=== PATIENT | female | born 1985 | race Caucasian/White ===

== ENCOUNTER → 2016-09-19 | Outpatient (CLI) | payer OTHER ==
[~2016-09-19] MED LIST: DICY10CA12; FLUO20CA35 PO; PRLSR20 PO
== END | disposition home or self-care (01) ==
LOC: C.LABSPEC 12:33
PROVIDERS: ATTEND Nurse Practitioner
DX: R39.15 Urgency of urination (principal); R35.0 Frequency of micturition

== ENCOUNTER → 2016-11-20 | Outpatient (CLI) | payer OTHER ==
[2016-11-20 09:54] LABS: CHOLESTEROL/HDL RATIO 2.2
== END | disposition home or self-care (01) ==
LOC: C.LAB 07:31
PROVIDERS: ATTEND Nurse Practitioner
DX: Z00.00 Encounter for general adult medical examination without abnormal findings (principal)

== ENCOUNTER 2018-10-01 08:33 | Inpatient (IN) ==
--- NOTE | 2018-09-03 15:08 | PAT Medication Instructions ---
Medication Instructions Date of Service September 03, 2018 Home Medications biotin 1,000 mcg PO QPM bupropion HCl [Wellbutrin SR] 100 mg PO QPM montelukast [Singulair] 10 mg PO QPM omeprazole 20 mg PO QPM STOP taking 2 weeks before surgery (or as soon as possible if surgery is within 2 weeks) biotin 1,000 mcg PO QPM Take evening before surgery bupropion HCl [Wellbutrin SR] 100 mg PO QPM montelukast [Singulair] 10 mg PO QPM omeprazole 20 mg PO QPM Other Notes If you have any questions please call us at [phone] or [phone] or [phone] or [phone]
--- NOTE | 2018-09-04 09:51 | Anesthesiology Consultation ---
Date of Service September 04, 2018 Assessment & Plan (1) Encounter for pre-operative examination: - Check test AM DOS Chart Review Chart Review: Acceptable Risk for Surgery and Patient seen in Pre Admission Test ing Teaching & Discussion Pre-Anesthesia Teaching/Discussion Notes: Instructed NPO after midnight before surgery,except medications with 15 cc of water. Medication instructions provided according to the PAT guidelines. History Surgery Operation Date: 10/01/18 07:15 Proposed Procedures p Left Total Hip Arthroplasty - Alex Anaya MD Height/Weight Height: 5 ft 5 in Weight: 83.3 kg Allergies Allergy/AdvReac Type Severity Reaction Status Date / Time No Known Allergies Allergy Verified 09/03/18 07:49 Medications Home Medications Medication Instructions Recorded Confirmed Last Taken biotin 1,000 mcg PO QPM 09/03/18 09/03/18 Unknown bupropion HCl [Wellbutrin SR] 100 mg PO QPM 09/03/18 09/03/18 Unknown montelukast [Singulair] 10 mg PO QPM 09/03/18 09/03/18 Unknown omeprazole 20 mg PO QPM 09/03/18 09/03/18 Unknown Past Medical History Medical History Anemia IN SETTING OF HEAVY MENSES (PCP MONITORING) Asthma CHILDHOOD; NO RECENT ISSUES Depression GERD (gastroesophageal reflux disease) CONTROLLED Exercise / Class Metabolic Activity II 4-5 Yardwork/Stairs/Walk up hill Past Family History Family History Grandmother (Maternal) Family hx of colon cancer Grandfather (Paternal) Family history of diabetes mellitus Past Surgical History Surgical History H/O uvulectomy History of cholecystectomy History of esophagogastroduodenoscopy (EGD) History of tonsillectomy Past Anesthesia History No Hx of Anesthesia Complications and No Family Hx of Anesthesia Complications History of PONV No Hx of PONV and Hx of Motion Sickness Social History Smoking Status: Former smoker tobacco type: cigarettes Do You Dip or Chew Tobacco: No Smoking End Date: QUIT 2 YEARS AGO Hx Alcohol Use: Yes Alcohol type: beer alcohol intake frequency: other Alcohol Intake Frequency Comment: SOCIALLY Hx Substance Use: No substance use type: does not use Review of Systems Reflux controlled. Patient denies chest pain, shortness of breath, dyspnea on exertion, cough, wheezing, palpitations. Physical Exam Vital Signs VITALS BP 119/84 P 91 TEMP 97.7 SP02 99%RA RESP 18 PHYSICAL Full neck and c-spine range of motion. Full TMJ range of motion. TMD 2.5 finger breaths Mallampati Score 3 Dentition: intact Lungs: clear throughout to auscultation Cardiac: regular rate and rhythm, no murmurs noted Spine: normal Carotid arteries: negative bruit Extremities: no edema Testing Electrocardiogram Date: 09/04/18 Findings: + NSR @ (85) Chest X-Ray Date: 09/04/18 Findings: + NAD Laboratory Results 09/04/18 10:16 09/04/18 10:16 PT 10.3 Seconds (9.0-12.0) 09/04/18 10:16 INR 1.0 (0.9-1.1) 09/04/18 10:16 APTT 26.4 Seconds (21.0-31.0) 09/04/18 10:16 Blood Type A Positive 09/04/18 10:16 Antibody Screen NEGATIVE 09/04/18 10:16
--- NOTE | 2018-09-04 10:43 | XRay Report ---
XR chest Pre-admission PA/Lat CLINICAL HISTORY: 33 years-old Female presenting with preoperative assessment. TECHNIQUE: PA and lateral views of the chest were obtained. COMPARISON: 05/12/2009. FINDINGS: Cardiomediastinal silhouette normal. Lungs and pleural spaces clear. Osseous structures normal. Upper abdomen normal. IMPRESSION: 1. No acute cardiopulmonary disease. Electronically signed by: Cam Hill M.D. 09/04/2018 10:42 AM
[2018-09-04 12:26] LABS: Mean Corpuscular Hgb Conc 32.6 g/dL (32-36); Mean Platelet Volume 9.4 fL (7.4-10.4); Platelet Count 380 K/uL (130-400)
[2018-09-04 12:34] LABS: BUN Creatinine Ratio 17.1 (10-20); Blood Urea Nitrogen 13 mg/dl (7-18); C Reactive Protein < 0.29 mg/dl (0-0.29); Calcium 8.5 mg/dl (8.5-10.1); Carbon Dioxide 27 mmol/L (21-32); Chloride 106 mmol/L (98-107); Creatinine Clr Calc Pharmacy 110.1 ml/min; Est GFR (African American) 117.8; Est GFR (Non-African American) 101.6; Glucose 98 mg/dl (70-99); Potassium 3.4 mmol/L (3.5-5.1); Sodium 137 mmol/L (136-145)
[2018-09-04 12:43] LABS: Partial Thromboplastin Time 26.4 Seconds (21.0-31.0); Prothrombin Time 10.3 Seconds (9.0-12.0)
[2018-09-04 12:51] LABS: Basophils # (auto) 0.04 K/uL (0-0.2); Basophils % (auto) 0.6 %; Eosinophils # (auto) 0.18 K/uL (0-0.5); Eosinophils % (auto) 2.7 %; Hematocrit (blood only) 32.8 % (37-47); Hemoglobin 10.7 g/dL (12.0-16.0); Immature Granulocytes # (auto) 0.01 K/uL (0.00-0.02); Immature Granulocytes % (auto) 0.2 %; Lymphocytes # (auto) 1.68 K/uL (1.2-3.4); Lymphocytes % (auto) 25.5 %; Mean Corpuscular Volume 81.2 fL (80-100); Monocytes # (auto) 0.67 K/uL (0.11-0.59); Monocytes % (auto) 10.2 %; Neutrophils # (auto) 4.01 K/uL (1.4-6.5); Neutrophils % (auto) 60.8 %; RDW Coefficient of Variation 15.1 % (11.5-14.5); RDW Standard Deviation 44.7 fL (36.4-46.3); Red Blood Count 4.04 M/uL (4.2-5.4); White Blood Count 6.59 K/uL (4.8-10.8)
--- NOTE | 2018-09-24 16:20 | History and Physical Report ---
DATE OF ADMISSION: 10/01/2018 CHIEF COMPLAINT: Left hip pain. HISTORY OF PRESENT ILLNESS: A 33-year-old female who presents for surgical treatment of her left hip. She has a several year history of increasing left hip pain and discomfort that gradually just gotten worse over the past year. She has initially more occasionally more buttock pain, but it has been more groin pain, thigh pain and that are the points where it hurts her all the time. She has limited walking tolerance. She cannot do anything active due to pain with any prolonged weightbearing. No numbness or radicular type symptoms. She has difficulty putting her shoes and socks on. She has difficulty going up and down steps. At the end of her shift, she has trouble standing. She has taken anti-inflammatories with minimal relief. She would like to have her left hip fixed. 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 There was no suspicion for cancer or tumor. PAST MEDICAL HISTORY: Significant for gastroesophageal reflux disease. PREVIOUS SURGERIES: Include: 1. Tonsillectomy. 2. Laparoscopic cholecystectomy. ALLERGIES: SEASONAL. CURRENT MEDICINES: Include: 1. Singulair 10 mg. 2. Wellbutrin 100 mg. 3. Prilosec 20 mg. 4. Biotin with keratin. SOCIAL HISTORY: A 34-year-old female. 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 She is . Two children. Rare alcohol intake. Does not smoke. FAMILY HISTORY: Significant for heart disease, colon cancer, breast cancer. REVIEW OF SYSTEMS: Negative for diabetes, neurologic problems, vascular problems, bleeding disorders. No chest pain or shortness of breath. No history of DVT or PE. No known bleeding problems. PHYSICAL EXAMINATION: GENERAL: Reveals a pleasant, but middle-aged female. Looks to be in excellent health. HEENT: Benign. NECK: Supple. No lymphadenopathy. LUNGS: Clear to auscultation. HEART: Regular rate and rhythm. ABDOMEN: Soft, nontender, nondistended. EXTREMITIES: Grossly neurovascularly intact except as follows. Examination of left hip reveals the patient walks with a slight bit of a limp. She is little short on the left side, maybe 0.5 cm compared to the right. She has a very stiff hip with internal rotation to neutral at best. External rotation at 20 degrees. Negative straight leg raise. She is neurologically intact. No significant warmth to her leg. X-RAYS: X-ray of left hip reviewed. It shows advanced left hip DJD. She has got fairly large cyst in the femoral head as well as the femoral neck area. There is collapse of the femoral head in the weightbearing area. I reviewed her MRI from the hospital. It does show significant collapse of the femoral head with edema and cystic changes. Otherwise, no obvious clear bony pathology. The radiologist thought this was consistent with pigmented villonodular synovitis versus gout. We did talk to him on the phone and there was no significant suspicion for cancer. PLAN: We talked about treatment options and she would like to have her left hip replaced, which I think is the only surgical option. We will obviously send this tissue off for analysis. Based on the imaging, it looks almost certainly benign. If it is PVNS, there certainly a chance the synovium could recur and we will do the best we can to excise all synovium. The risks and benefits of left total hip replacement were explained to the patient including but not limited to DVT, PE, , infection, neurological injury, vascular injury, bleeding problem, pain, limited range of motion, stiffness, failure to relieve her symptoms, dislocation, need for revision surgery in the future. The patient understands and desires to proceed. Informed consent was obtained. I did tell her as an outside chance, there could be cancer in this, although based on the MRI, plain films, this looks almost certainly benign. There is always a chance, at least we do not have to send it elsewhere for additional treatment. She is aware of this. As far as discharge plans, she is planning to be discharged to home with the [facility].
[~2018-10-01 08:33] MED LIST changes: +ACETAMINOPHEN 500 MG TAB PO SCH; +BUPIVACAINE 0.5 % 5 MG/1 ML PF 10ML VIAL ONE; +CEFAZOLIN 2000MG 2,000 MG/15 ML SYR IV SCH; -DICY10CA12; +FAMOTIDINE 20 MG TAB PO SCH; -FLUO20CA35 PO; +GABAPENTIN 300 MG x 3 PO SCH; +LR 500ML BOLUS, THEN 15ML/HR IV SCH; +LR 60ML/HR IV SCH; +METOCLOPRAMIDE HCL 10 MG TABLET PO SCH; -PRLSR20 PO; +SCOPOLAMINE 1.5 MG TDSY TD SCH; +TRANEXAMIC ACID 1,000 MG **IV Pre-op IV SCH
--- NOTE | 2018-10-01 08:46 | History & Physical Bridge Note ---
Date of Service October 01, 2018 History & Physical Bridge Note I have examined the patient, reviewed the History & Physical and in the interval since the performance of the History & Physical I have noted the following changes of clinical significance: no changes noted
[2018-10-01] MEDS ORDERED: fentaNYL citrate 100 MCG/2 ML VIAL ONE (09:51)
[2018-10-01] MEDS ORDERED: MIDAZOLAM HCL 1 MG/ML 2ML VIAL ONE ×2 (09:51)
[2018-10-01] MEDS ORDERED: MoRPHine SULFATE PF 1 MG/ML 10 ML AMP/VIAL ONE (09:55)
[2018-10-01] MEDS ORDERED: BUPIVACAINE/EPINEPHRINE 0.5% MPF 1:200,000 30 ML VIAL ONE (10:24)
[2018-10-01] MEDS ORDERED: BACITRACIN INJ 50,000 UNIT VIAL ONE (10:24)
[2018-10-01] MEDS ORDERED: PROPOFOL IV EMULSION 10 MG/ML 20 ML VIAL IV ONE ×3 (10:29→12:26)
[2018-10-01] MEDS ORDERED: LIDOCAINE HCL 2% 2 ML VIAL/AMP(20MG/ML) INFIL ONE (10:29)
[2018-10-01] MEDS ORDERED: DiphenhydrAMINE HCL 50 MG/ML VIAL IV PRN (11:00)
[2018-10-01] MEDS ORDERED: SODIUM CHLORIDE 0.9% 1000ML 1,000 ML IV SCH ×2 (11:00→14:01)
[2018-10-01] MEDS ORDERED: LACTATED RINGER'S 500 ML IV PRN (11:00)
[2018-10-01] MEDS ORDERED: PROMETHAZINE HCL 12.5 MG in SODIUM CHLORIDE 0.9% 50 ML IV PRN (11:00)
[2018-10-01] MEDS ORDERED: NALBUPHINE HCL INJ 10 MG/ML AMP IV PRN (11:00)
[2018-10-01] MEDS ORDERED: MEPERIDINE HCL 25 MG/ML CARP IV PRN (11:00)
[2018-10-01] MEDS ORDERED: NALOXONE HCL 0.4 MG/1 ML VIAL/CARP IV PRN ×2 (11:00→14:01)
[2018-10-01] MEDS ORDERED: NO NARCOTICS OR SEDATIVES SCH (11:00)
[2018-10-01] MEDS ORDERED: KETOROLAC 30 MG/ML VIAL IV PRN (11:00)
[2018-10-01] MEDS ORDERED: DC INTRASPINAL MORPHINE SCH (11:00)
[2018-10-01] MEDS ORDERED: NALOXONE HCL 0.08 MG in SYRINGE 1.8 ML IV PRN (11:00)
[2018-10-01] MEDS ORDERED: MoRPHine SULFATE PF 1 MG/ML 10 ML AMP/VIAL INT SPINAL ONE (11:00)
[2018-10-01] MEDS ORDERED: ONDANSETRON INJ 2 MG/ML 2 ML VIAL IV PRN (11:00)
[2018-10-01] MEDS ORDERED: ePHEDrine sulfate 50 MG/ML AMP IV PRN (11:00)
[2018-10-01] MEDS ORDERED: NALOXONE HCL 1 MG in SODIUM CHLORIDE 0.9% 1000ML 1,000 ML IV PRN (11:00)
[2018-10-01] MEDS ORDERED: ONDANSETRON INJ 2 MG/ML 2 ML VIAL ONE (12:20)
--- NOTE | 2018-10-01 12:40 | Post Operative Brief Note ---
Immediate Post Op Note v1 Date of Surgery October 01, 2018 Pre & Post Diagnosis Operation Date: 10/01/18 10:55 Pre-Op Diagnosis: Left Hip Advanced Degenerative Joint Disease Post-Op Diagnosis: Left Hip Advanced Degenerative Joint Disease Procedure Operation Date: 10/01/18 10:55 Actual Procedures p Left Total Hip Arthroplasty--Uncemented(Left) - Alex Anaya MD Surgeon Alex Anaya MD Seasonal Recruiter Carole, PAC Estimated Blood Loss 200 Findings Consistent with Post-Op Diagnosis Fluids 1400 cc Specimens Left Femoral Head Drains Clayton Catheter (A 16 Bel[place]ian clayton catheter was inserted by Lucila Lantigua RN, without difficulty, clear yellow urine obtained, output to be monitored by Leigha rodriguez.) Anesthesia Type Spinal MAC Complications none Disposition Accompanied Patient To Recovery: Yes Disposition: Recovery Room
--- NOTE | 2018-10-01 13:11 | Anesthesiology Progress Note ---
Date of Service October 01, 2018 Anesthesia Post Procedure Vital Signs Vital Signs: Temp Pulse Resp BP Pulse Ox 10/01/18 13:00 73 16 111/63 100 10/01/18 12:50 72 16 117/61 100 10/01/18 12:44 36.2 C L 72 18 115/60 100 10/01/18 09:00 37 C 93 H 16 134/78 98 Pain Intensity Left Hip: Pain Intensity: 4 Transfer of Care Handoff Completed per policy Notes Mental Status: alert / awake / arousable Patient Amnestic to Procedure: Yes Nausea / Vomiting: adequately controlled Pain: adequately controlled Airway Patency, RR, SpO2: stable & adequate BP & HR: stable & adequate Hydration State: stable & adequate Neuraxial Anesthesia: was administered and sensory block is resolving Anesthetic Complications: no major complications apparent
--- NOTE | 2018-10-01 13:30 | XRay Report ---
AP PELVIS, CROSSTABLE LATERAL LEFT HIP History: Left total hip arthroplasty. Degenerative arthritis. Postop. FINDINGS: The patient is status post a left total hip arthroplasty. The hardware is intact. No fractu re or dislocation. Skin raina are in place. IMPRESSION: Left total hip arthroplasty. No evidence for hardware complication. Electronically signed by: Mendoza Baeza M.D. 10/01/2018 1:29 PM
[2018-10-01] MEDS ORDERED: BISACODYL 10 MG SUPP PR PRN (14:01)
[2018-10-01] MEDS ORDERED: OXYCODONE HCL IR 5 MG TAB (IMMEDIATE RELEASE) PO PRN (14:01)
[2018-10-01] MEDS ORDERED: METOCLOPRAMIDE HCL INJ 5 MG/ML 2 ML VIAL IV PRN (14:01)
[2018-10-01] MEDS ORDERED: ALUMINUM/MAGNESIUM SUSP 30 ML UDC PO PRN (14:01)
[2018-10-01] MEDS ORDERED: HYDROmorphone INJ 0.5 MG/0.5 ML SYR IV PRN (14:01)
[2018-10-01] MEDS ORDERED: MAGNESIUM HYDROXIDE SUSP 30 ML UDC PO PRN (14:01)
[2018-10-01] MEDS: CHECK SCOPOLAMINE PATCH PLACEMENT SCH ×2 (15:27→23:11)
[2018-10-01] MEDS ORDERED: KETOROLAC 30 MG/ML VIAL IV SCH (16:00)
[2018-10-01] MEDS: FERROUS GLUCONATE 324 MG TAB PO SCH (18:31)
[2018-10-01] MEDS: ASCORBIC ACID 500 MG TAB PO SCH (18:31)
[2018-10-01] MEDS ORDERED: TRANEXAMIC ACID 1,000 MG in 0.9 % SODIUM CHLORIDE 100 ML IV SCH (18:41)
[2018-10-01] MEDS: CEFAZOLIN 2000MG 2,000 MG/15 ML SYR IV SCH (20:23)
[2018-10-01] MEDS: BuPROPion SR 100 MG TABCR PO SCH (20:24)
[2018-10-01] MEDS: MONTELUKAST SODIUM 10 MG TABLET PO SCH (20:24)
[2018-10-01] MEDS: SENNA 8.6 MG TAB PO SCH (20:25)
[2018-10-01] MEDS: ASPIRIN 81 MG ECTAB PO SCH (20:25)
[2018-10-01] MEDS: OMEPRAZOLE 20 MG CAPCR PO SCH (20:26)
[2018-10-01] MEDS: DOCUSATE SODIUM 100 MG CAP PO SCH (20:27)
[2018-10-01] MEDS ORDERED: PANTOprazole 40 MG TAB PO SCH (21:00)
[2018-10-01] MEDS ORDERED: NON-FORMULARY MEDICATION (Biotin 1,000 MCG) PO SCH (21:00)
--- NOTE | 2018-10-01 21:28 | Progress Note ---
DATE: 10/01/2018 SUBJECTIVE: This is a 33-year-old female postop from a left hip replacement. She is doing well. Not having any pain yet. No chest pain or shortness of breath. Not feeling dizzy or lightheaded. OBJECTIVE: VITAL SIGNS: Temperature is 36.1. Vital signs stable. PHYSICAL EXAMINATION: GENERAL: She is a pleasant, middle-aged female. She is sitting up in bed and talking to family. Looks comfortable. LUNGS: Clear to auscultation. HEART: Regular rate and rhythm. ABDOMEN: Soft, nontender, nondistended. EXTREMITIES: Grossly neurovascularly intact except as follows: Examination of the left lower extremity reveals the leg lengths to be equal. Hip is located. Dressing is clean, dry and intact. Her thigh is soft and supple. She is neurologically intact. She can dorsiflex and plantarflex her foot appropriately. X-RAYS: X-rays of the left hip from recovery room were reviewed. It shows left uncemented total hip arthroplasty. Components looked to be in good position. No signs of problems. ASSESSMENT: A 33-year-old female postop from a left hip replacement, doing well. Pain is controlled. Hip is located. She is neurologically intact. PLAN: 1. DVT prophylaxis including thigh-high TEDs, SCDs, and aspirin twice a day. 2. PT/OT. Weight bear as tolerated. Left total hip protocol. 3. Pain control, doing well with current pain regimen. 4. IV antibiotics x24 hours. 5. Disposition: Plan to discharge to home with some home health once adequately recovered.
[2018-10-01] MEDS: ACETAMINOPHEN 500 MG TAB PO SCH (22:13)
--- NOTE | 2018-10-02 00:42 | Operative Report ---
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 POSTOPERATIVE DIAGNOSES: Left hip advanced degenerative joint disease, possibly related to avascular necrosis versus other. PROCEDURE PERFORMED: Left uncemented ceramic on highly cross-linked polyethylene total hip arthroplasty. COMPLICATIONS: None. ESTIMATED BLOOD LOSS: 200 mL. FLUID REPLACEMENT: 1400 mL crystalloid fluid replacement. ANESTHESIA: Spinal. DRAINS: None. SPECIMENS: Left femoral head sent for pathology. OPERATIVE INDICATIONS: The patient is a 33-year-old female who has had several year history of increasing left hip pain and discomfort. She describes it has gotten worse markedly over the past year. She failed all conservative care. X-rays showed large cystic changes and collapse of her femoral head of unclear etiology. We did an extensive workup which showed possible deep pigmented villonodular synovitis versus other. There did not appear to be any bone cancer. It seemed to be a benign lesion. The patient elected to proceed with total hip arthroplasty. OPERATIVE FINDINGS: Operative findings revealed advanced left femoral head collapse of the weightbearing portion. There was not a lot of synovitis. There was a joint effusion. She does have some pretty significant anterior osteophytes to the acetabulum. There were no signs of pigmented villonodular synovitis. The cartilage off of the superior dome head had sheared off. OPERATIVE IMPLANTS: Operative implants consisted of: 1. A Biomet G7 size 52 mm acetabular shell. 2. An apex hole eliminator. 3. A 6.5 cancellous acetabular screws, one at 35 mm in length, one at 25 mm in length. 4. A highly cross-linked polyethylene liner vitamin E enriched with a 52 mm outer diameter and 32 mm inner diameter. 5. DePuy Corail size 9 standard offset femoral stem. 6. A +1/32 mm ceramic articular ball. OPERATIVE PROCEDURE: The patient was taken to the operating room, identified and placed on the Operating Room table in supine position. All contact areas were appropriately padded. I.V. antibiotics were provided by anesthesia team. A spinal anesthetic had been implemented in the holding area. Torres catheter was placed in sterile fashion. The patient was then placed in right lateral decubitus position. An axillary roll was placed. Stlberg hip positioner was used for positioning. Left hip and leg were then prepped and draped in usual sterile fashion. A posterolateral approach to the left hip was then performed through a curvilinear incision centered over the greater trochanter. Sharp dissection was carried through subcutaneous tissues down to the level of the IT band and gluteal fascia. The IT band and gluteal fascia were incised longitudinally in line with skin incision. The underlying greater trochanteric bursa was excised. The piriformis and external rotators were tagged and taken off the posterior aspect of the hip joint capsule. Great care was taken throughout the procedure to protect the sciatic nerve at all times. Posterior capsulotomy was then performed leaving a large flap for later repair. Hip was internally rotated and dislocated. Femoral neck osteotomy cut was made with the final cut about 12 mm above the lesser trochanter. Femoral head was removed and sent for pathology. Attention was then drawn to the acetabulum. The acetabular labrum was excised. The pulvinar fat was excised. Sequential reaming of the acetabulum was then performed beginning with size 45 and progressing up to 51. I did ream the entrance with a 52 mm reamer, so we could get the cup in. A 52 mm Biomet G7 acetabular shell was then placed in about 40 degrees of lateral opening and 25 degrees of anteversion. It was fixed with two 6.5 cancellous acetabular screws. A large anterior osteophyte was removed. A trial liner was placed. Attention was then drawn to the femur. The proximal femur was entered with cookie cutter followed by canal finder. I broached beginning with a size 8 and progressing to 9. She had excellent cancellous bone and excellent support so we stopped at 9. The calcar reamer was used to smoothen off the calcar. I trialed the hip with different articular balls. It was fully stable, but +5 articular ball just seemed a bit too tight. With +1, the hip was fully stable in full extension and external rotation and flexion to 90 degrees and internal rotation to over [address] I elected to place these implants. I felt her leg lengths were equal. All trial implants were removed. An apex hole eliminator was placed. Highly cross-linked polyethylene liner with vitamin E enrichment was placed. A DePuy Corail size 9 standard offset stem was impacted in position. A +1/32 mm ceramic articular ball was placed. Hip was located once again and found to be stable. Attention was then drawn toward closing. The wound was irrigated with copious amounts of normal saline. I injected locally with 60 mL of 0.5% Marcaine with epinephrine. Posterior capsule and external rotators were then repaired through drill holes in the posterior trochanter with #2 Ti-Cron suture. The IT band and gluteal fascia were then closed with #1 PDS suture in a running fashion. The subcutaneous tissue was then closed with 2 layers with the deep layer #1 Vicryl suture and subcutaneous tissue with 2-0 Dexon suture in a buried interrupted fashion. The skin was then closed with skin raina. Leg was then cleaned and dried and a sterile dressing of Xeroform, 4 x 4, sterile ABD pad and foam tape was applied. The patient was then transferred to the recovery room in a stable condition. The patient tolerated the procedure well with no complications. All needle and sponge counts were correct at the end of the operation. I attest to the content of the Intraoperative Record and any orders documented therein. Any exception s are noted below.
[2018-10-02] MEDS: CEFAZOLIN 2000MG 2,000 MG/15 ML SYR IV SCH (03:03)
[2018-10-02] MEDS: ACETAMINOPHEN 500 MG TAB PO SCH ×3 (06:32→21:42)
[2018-10-02] MEDS: KETOROLAC 30 MG/ML VIAL IV SCH ×3 (06:33→18:02)
[2018-10-02 07:02] LABS: Hematocrit (blood only) 30.2 % (37-47); Hemoglobin 9.5 g/dL (12.0-16.0); Mean Corpuscular Hgb Conc 31.5 g/dL (32-36); Mean Corpuscular Volume 82.5 fL (80-100); Mean Platelet Volume 8.4 fL (7.4-10.4); Platelet Count 285 K/uL (130-400); RDW Coefficient of Variation 18.2 % (11.5-14.5); RDW Standard Deviation 55.3 fL (36.4-46.3); Red Blood Count 3.66 M/uL (4.2-5.4)
--- NOTE | 2018-10-02 07:17 | Orthopedic Progress Note ---
Date of Service October 02, 2018 Assessment & Plan (1) Status post total hip replacement, left: She was seen and examined by Dr. Anaya PT/OT wbat, total hip precautions Pain is controlled. dvt prophylaxis Hgb 9.5 today: continue iron supplement discharge planning. Subjective POD 1 from left NEVAEH. Pain is controlled. She was up walking some yesterday and says it felt good to get up. Physical Exam Physical Exam: Alert and oriented. NAD. Hip located/good alignment. NVI and able to DF/PF Results & Data Vital Signs (Past 12 Hours) Vital Signs Temp Pulse Resp BP Pulse Ox 10/02/18 04:00 16 98 10/02/18 03:00 16 96 10/02/18 02:55 36.9 C 89 16 107/68 99 10/02/18 02:15 16 97 10/02/18 01:15 14 100 10/02/18 00:15 16 99 10/01/18 23:39 37.1 C 87 16 112/71 98 10/01/18 23:15 18 100 10/01/18 22:12 16 100 10/01/18 21:12 18 99 10/01/18 20:22 18 96 10/01/18 19:29 36.5 C 82 19 135/84 97
[2018-10-02 07:36] LABS: BUN Creatinine Ratio 11.4 (10-20); Calcium 8.1 mg/dl (8.5-10.1); Creatinine Clr Calc Pharmacy 101.4 ml/min; Est GFR (African American) 107.5; Est GFR (Non-African American) 92.7; Potassium 3.7 mmol/L (3.5-5.1)
[2018-10-02] MEDS: ONDANSETRON INJ 2 MG/ML 2 ML VIAL IV PRN (07:57)
[2018-10-02 08:06] LABS: ALC (manual) 2.99 K/uL (1.2-3.4); Basophils # (manual) 0.05 K/uL (0-0.2); Basophils % (manual) 0.9 %; Hypochromasia Present; Lymphocytes # (manual) 0.77 K/uL (1.2-3.4); Monocytes % (manual) 1.8 %; Neutrophils % (manual) 42.9 %; Polychromasia 1+; Reactive Lymphocytes # (manual) 2.22 K/uL
--- NOTE | 2018-10-02 08:11 | Anesthesiology Progress Note ---
Date of Service October 02, 2018 Anesthesia Post Procedure Vital Signs Vital Signs: Temp Pulse Resp BP Pulse Ox 10/02/18 07:55 36.7 C 85 16 113/73 99 10/02/18 04:00 16 98 10/02/18 03:00 16 96 10/02/18 02:55 36.9 C 89 16 107/68 99 10/02/18 02:15 16 97 10/02/18 01:15 14 100 10/02/18 00:15 16 99 10/01/18 23:39 37.1 C 87 16 112/71 98 10/01/18 23:15 18 100 10/01/18 22:12 16 100 10/01/18 21:12 18 99 10/01/18 20:22 18 96 10/01/18 19:29 36.5 C 82 19 135/84 97 10/01/18 19:15 20 98 10/01/18 18:26 18 97 10/01/18 17:19 20 98 10/01/18 16:56 78 18 114/73 98 10/01/18 16:23 20 98 10/01/18 15:40 36.1 C L 74 18 105/69 96 10/01/18 15:18 18 98 10/01/18 14:53 73 16 120/81 98 10/01/18 14:15 67 18 116/78 92 10/01/18 13:45 36.5 C 74 16 113/73 99 10/01/18 13:43 36.6 C 72 22 120/72 98 10/01/18 13:30 36.6 C 74 22 121/67 97 10/01/18 13:20 36.6 C 77 22 127/66 98 10/01/18 13:10 83 19 136/63 99 10/01/18 13:00 73 16 111/63 100 10/01/18 12:50 72 16 117/61 100 10/01/18 12:44 36.2 C L 72 18 115/60 100 10/01/18 09:00 37 C 93 H 16 134/78 98 Pain Intensity Left Hip: Pain Intensity: 4 Notes Mental Status: alert / awake / arousable and participated in evaluation Patient Amnestic to Procedure: Yes Nausea / Vomiting: adequately controlled Pain: adequately controlled Airway Patency, RR, SpO2: stable & adequate BP & HR: stable & adequate Hydration State: stable & adequate Neuraxial Anesthesia: was administered and sensory block resolved Anesthetic Complications: no major complications apparent and Pt Satisfied with anesthetic care
[2018-10-02] MEDS: DOCUSATE SODIUM 100 MG CAP PO SCH ×2 (09:17→21:15)
[2018-10-02] MEDS: TAPENTADOL HCL ER 50 MG TABCR PO SCH ×2 (09:17→21:14)
[2018-10-02] MEDS: FERROUS GLUCONATE 324 MG TAB PO SCH ×2 (09:18→18:02)
[2018-10-02] MEDS: MULTIVITAMIN TAB PO SCH (09:18)
[2018-10-02] MEDS: ASPIRIN 81 MG ECTAB PO SCH ×2 (09:18→21:14)
[2018-10-02] MEDS: ASCORBIC ACID 500 MG TAB PO SCH ×2 (09:18→18:02)
[2018-10-02] MEDS: BuPROPion SR 100 MG TABCR PO SCH (21:14)
[2018-10-02] MEDS: SENNA 8.6 MG TAB PO SCH (21:14)
[2018-10-02] MEDS: MONTELUKAST SODIUM 10 MG TABLET PO SCH (21:14)
[2018-10-02] MEDS: OMEPRAZOLE 20 MG CAPCR PO SCH (21:15)
[2018-10-03] MEDS: KETOROLAC 30 MG/ML VIAL IV SCH ×2 (00:27→05:33)
[2018-10-03] MEDS: ACETAMINOPHEN 500 MG TAB PO SCH (05:33)
[2018-10-03] MEDS: ONDANSETRON INJ 2 MG/ML 2 ML VIAL IV PRN (06:04)
[2018-10-03] MEDS: MULTIVITAMIN TAB PO SCH (07:43)
[2018-10-03] MEDS: FERROUS GLUCONATE 324 MG TAB PO SCH (07:43)
[2018-10-03] MEDS: ASCORBIC ACID 500 MG TAB PO SCH (07:44)
[2018-10-03] MEDS: ASPIRIN 81 MG ECTAB PO SCH (07:44)
[2018-10-03] MEDS: DOCUSATE SODIUM 100 MG CAP PO SCH (07:46)
[2018-10-03] MEDS: TAPENTADOL HCL ER 50 MG TABCR PO SCH (07:46)
--- NOTE | 2018-10-03 08:28 | Progress Note ---
DATE: 10/03/2018 SUBJECTIVE: A 33-year-old white female postop day 2 from a left hip replacement. She is doing well. Pain is controlled. Therapy has gone well. Not feeling dizzy or lightheaded. No chest pain. OBJECTIVE: VITAL SIGNS: Temperature 36.7. Vital signs stable. GENERAL: Physical examination reveals a pleasant, middle-aged female. She is sitting up in bed and looks pretty comfortable. EXTREMITIES: Examination of the left hip reveals incision to be clean, dry and intact. Thigh is soft and supple. Leg lengths are equal. Hip is located. She is neurologically intact. ASSESSMENT: A 33-year-old white female postop day 2 from a left hip replacement, doing well. She has underlying chronic anemia, but her hemoglobin is stable and she is asymptomatic. PLAN: 1. DVT prophylaxis including thigh-high TEDs, SCDs, and aspirin twice a day. 2. PT/OT. Weight bear as tolerated. Left total hip protocol. 3. Pain control, doing well with current pain regimen. 4. Anemia. Currently, asymptomatic. Continue iron supplementation. She will follow up with Dr. Garcia, dance choreographer for iron deficiency anemia. 5. Disposition: Plan to discharge to home with some home health later today.
--- NOTE | 2018-10-07 14:49 | Discharge Summary ---
ADMITTING PHYSICIAN AND SURGEON: Dr. Alex Anaya. ADMITTING DIAGNOSIS: Left hip degenerative joint disease likely secondary to a pigmented villonodular synovitis versus avascular necrosis. PROCEDURE PERFORMED: Left total hip replacement. SECONDARY DIAGNOSES: Gastroesophageal reflux disease. CONSULTS: None obtained. HISTORY AND PHYSICAL EXAMINATION: Well documented in the patient's chart. HOSPITAL COURSE: The patient was admitted on 10/01/2018 underwent total hip arthroplasty, tolerated the procedure well. There were no complications. She was transferred to the PACU postoperatively and later to the orthopedic for further care. She was given Ancef for antibiotic prophylaxis, JOCELYNN stockings, SCDs and aspirin for DVT prophylaxis. Hemoglobin, hematocrit and vital signs were monitored during her hospital stay and she remained stable. She had some underlying chronic anemia but hemoglobin remained stable and she was asymptomatic during her hospital stay; did not require blood transfusions. There were no complications. By postoperative day 2, she was tolerating a regular diet, pain was controlled with oral pain medicine. She was participating in physical therapy. Postop day 2, she was discharged home, set up with home health services. She was given printed discharge instructions as well as new prescriptions for extra strength Tylenol, aspirin, iron supplement and oxycodone. Continue physical therapy, weightbearing as tolerated, JOCELYNN stockings, total hip precautions. Continue her home medications. Follow up approximately 2 weeks postoperatively or sooner if there are any problems or concerns. It was also recommended she follows up with Dr. Garcia ext js developer for iron deficiency anemia as an outpatient as well.
== END 2018-10-03 11:50 | disposition home health service (06) | DRG 470 ==
LOC: ASU 08:33 → 3E 13:49